=== PATIENT | male | born 1980 ===

== ENCOUNTER 2017-08-20 16:57 | Emergency (ER) | payer SELFPAY ==
[2017-08-20 17:05] VITALS: PULSE 112; RESP 18
[2017-08-20 19:10] VITALS: BP 123/77; TEMP 97.6; O2SAT 97
--- NOTE | 2017-08-20 19:35 | C.PDOC ---
History Of Present Illness Pt was BIBEMS due to alcohol intoxication. Pt admits to drinking alcohol today ( beer). Time Seen by Provider: 08/20/17 18:22 Chief Complaint (Nursing): Substance Abuse History Per: Patient, EMS History/Exam Limitations: intoxication Onset/Duration Of Symptoms: Unknown (today) Current Symptoms Are (Timing): Still Present Suicide/Self Injury Attempted (Context): None Modifying Factor(s): Alcohol Severity: Moderate Associated Symptoms: denies: Suicidal Thoughts, Suicidal Plan Additional History Per: Prior Records Past Medical History Reviewed: Historical Data, Nursing Documentation, Vital Signs Vital Signs: Last Vital Signs Temp 97.6 F 08/20/17 19:08 Pulse 112 H 08/20/17 19:08 Resp 18 08/20/17 19:08 BP 123/77 08/20/17 19:08 Pulse Ox 97 08/20/17 19:08 - Medical History PMH: No Chronic Diseases Family History: States: Unknown Family Hx - Social History Hx Alcohol Use: Yes Hx Substance Use: No Review Of Systems Constitutional: Negative for: Fever, Weakness Cardiovascular: Negative for: Chest Pain Respiratory: Negative for: Shortness of Breath Gastrointestinal: Negative for: Vomiting, Abdominal Pain Musculoskeletal: Negative for: Neck Pain Neurological: Negative for: Weakness, Numbness, Seizures Physical Exam - Physical Exam Appears: Non-toxic, No Acute Distress, Other (AOB, intoxicated.) Skin: Normal Color, Warm, Dry, No Rash Head: Atraumatic, Normacephalic Eye(s): bilateral: PERRL, EOMI Neck: Normal ROM, Supple Cardiovascular: Rhythm Regular Respiratory: Normal Breath Sounds, No Accessory Muscle Use Gastrointestinal/Abdominal: Soft, No Tenderness Extremity: Normal ROM Neurological/Psych: Oriented x3, Normal Motor, Normal Sensation ED Course And Treatment O2 Sat by Pulse Oximetry: 97 Pulse Ox Interpretation: Normal Progress Note: Pt is now ambulating in a steady gait and requesting discharge home. Reevaluation Time: 19:34 Reassessment Condition: Improved Disposition Counseled Patient/Family Regarding: Diagnosis, Need For Followup - Disposition Referrals: [facility] at [facility] [Outside] Disposition: HOME/ ROUTINE Disposition Time: 19:35 Condition: IMPROVED Additional Instructions: Avoid alcohol. Follow up with your doctor or in the clinic. Return to the ER if you develop worsening of symptoms or if you have any other concerns. Instructions: Alcohol Abuse and Alcoholism (DC) Print Language: JAPANESE - Clinical Impression Clinical Impression: Alcohol intoxication
== END 2017-08-20 19:44 | disposition home or self-care (01) ==
LOC: C.ER 16:57
DX: F10.129 Alcohol abuse with intoxication, unspecified (principal); Y90.9 Presence of alcohol in blood, level not specified